=== PATIENT | male | born 1965 | race Caucasian/White ===

== ENCOUNTER 2016-11-26 18:12 | Emergency (ER) | payer OTHER ==
[2016-11-26 18:38] VITALS: BP 155/97
== END 2016-11-26 22:35 | disposition home or self-care (01) ==
LOC: ED 18:12
DX: S20.212A Contusion of left front wall of thorax, initial encounter (principal); J93.9 Pneumothorax, unspecified; Y04.2XXA Assault by strike against or bumped into by another person, initial encounter; Y93.89 Activity, other specified; Y92.89 Other specified places as the place of occurrence of the external cause; Y99.8 Other external cause status